=== PATIENT | male | born 1955 | race Caucasian/White ===

== ENCOUNTER 2025-03-13 10:04 | Inpatient (IN) ==
--- NOTE | 2025-03-13 10:23 | Emergency Department Note ---
Impression & Plan Kidney stone on left side ED Provider Note Provider: Christofer Lomax MD CHIEF COMPLAINT: Left leg pain HISTORY OF PRESENT ILLNESS: Patient is a 69-year-old gentleman history of kidney stones, hypertension, and type II diabetes presenting here today complaining onset this morning of left flank pain. Feels similar to kidney stones last kidney stone was when he was here 2 years ago. No falls reported. Maybe little bit of left flank tenderness. Reports some frequent urination this morning and burning when he pees but no blood in the urine. Denies fever. Some nausea and vomited before arriving. Did not take anything for pain today prior to arrival. PAST MEDICAL HISTORY: As noted above MEDICATIONS: Reviewed home medications SOCIAL HISTORY: Former smoker PHYSICAL EXAM: GENERAL: alert and oriented on stretcher appears mildly uncomfortable. Head: normocephalic and atraumatic EYES: No injection, discharge or icterus. NECK: Trachea midline. ENT: Mucous membranes pink and moist. LUNGS: Airway patent. No retractions or tachypnea HEART: Regular rate and rhythm. No chest wall tenderness ABDOMEN: Soft and non-tender, without guarding or rebound. However having some mild left flank tenderness. SKIN: Acyanotic, warm, dry, without rashes EXTREMITIES: Without swelling, tenderness or deformity NEUROLOGICAL: No focal deficits. No aphasia. No facial droop or slurred speech. Ambulatory. CONTINUOUS CARDIAC MONITORING: was ordered and showed a heart rate of 60s bpm in normal sinus rhythm Patient's laboratory studies and imaging reviewed. Differential includes Renal colic, UTI, appendicitis, diverticulitis, mesenteric ischemia, aortic pathology, infections, inflammatory bowel disease, PUD, biliary pathology, as well as other pathologies. IMPRESSION/MEDICAL DECISION MAKING: Patient history of kidney stones and states it feels similar. No trauma history. No fever history. No blood reported in the urine this morning others reported little urinary frequency and discomfort. Will send UA to exclude infection. Will complete a CT scan the abdomen pelvis to look for possible kidney stone or other occult intra-abdominal processes. Symptoms could possibly represent kidney stone, possible infection/UTI/pyelonephritis, diverticulitis, or less likely obstruction. Doubt this is cardiac in nature. Basic blood work obtained. Given IV fluids, Zofran, morphine, and Toradol for pain control. Blood work without anemia or leukocytosis. No skin electrolyte abnormality signs or renal dysfunction. No evidence of hepatitis or pancreatitis. CT scan of the abdomen pelvis per radiology shows a distal left ureteral stone 8 mm in size. A staghorn calculus in left lower kidney is noted. Received additional dose of morphine for pain which returned. Received IV fluid to hopefully obtain a urine sample to exclude occult infection. Patient with a history of stenting. Significant pain. UA not impressive for infection. Discussed with patient findings. Will likely need urological intervention given the size. Given his need for pain control in discussion with the patient wish to come in for pain control and urological evaluation. Patient states given his pain issues would like to come in for further care and evaluation. Hospitalist team was contacted. DIAGNOSIS: Left-sided kidney stone DISPOSITION: Hospitalist will evaluate Patient was agreeable with this plan. Past Med/Surg History Problem List (Updated 03/13/25 @ 13:24 by Christofer Lomax M.D.) Kidney stone on left side (Acute) Calculus of proximal left ureter Kidney stone (Acute) HTN (hypertension) Dyslipidemia DM type 2 (diabetes mellitus, type 2) Medical History DM type 2 (diabetes mellitus, type 2) Dyslipidemia HTN (hypertension) Kidney stone Mild intermittent asthma Surgical History History of shoulder surgery Social History Smoking Status: Former smoker Tobacco Type: Cigarettes Cigarettes Per Day: 1-2; Second Hand Exposure: No; Do You Dip or Chew Tobacco: No; Hx Alcohol Use: No Hx Substance Use: No Preferred Language: Belarusian Communication Ability: Effective Custom Clothier Required: No Beliefs That Will Affect Care: None Current Living Situation: Significant Other Feels Safe at Home: Yes Assistive Devices: Glasses and Hospital Bed Allergies Allergies Allergy/AdvReac Type Severity Reaction Status Date / Time Penicillins Allergy Unknown MOM IS Verified 04/09/23 12:25 ALLERGIC Home Meds Home Medications Medication Instructions Recorded Confirmed ascorbic acid (vitamin C) 500 mg 500 mg PO DAILY 04/09/23 03/13/25 tablet (Vitamin C) atenolol 25 mg tablet 12.5 mg PO DAILY 04/09/23 03/13/25 ferrous sulfate 325 mg (65 mg 325 mg PO DAILY 04/09/23 03/13/25 iron) tablet melatonin 10 mg tablet 10 mg PO HS 04/09/23 03/13/25 simvastatin 20 mg tablet 20 mg PO HS 04/09/23 03/13/25 spironolactone 25 mg tablet 25 mg PO BID 04/09/23 03/13/25 tamsulosin 0.4 mg capsule 0 mg PO HS 03/13/25 03/13/25 Results & Data (ED) Vital Signs Vital Signs - 24 hr 03/13/25 10:05 03/13/25 10:18 03/13/25 10:22 Temperature 36.3 C L Temperature Source Temporal Artery Scan Pulse Rate 59 L 65 63 Pulse Rhythm Regular Respiratory Rate 22 18 Blood Pressure 158/79 H Blood Pressure Mean 105 Pulse Oximetry 93 99 Oxygen Delivery Method Room Air Room Air Sepsis New/Unexplained Change in Mental Status No Sepsis Action Taken by Nursing No Action Required 03/13/25 11:36 03/13/25 12:24 03/13/25 12:30 Temperature Temperature Source Pulse Rate 58 L 65 59 L Pulse Rhythm Respiratory Rate 20 21 22 Blood Pressure 133/75 157/94 H 145/86 H Blood Pressure Mean 89 124 98 Pulse Oximetry 95 97 97 Oxygen Delivery Method Room Air Room Air Room Air Sepsis New/Unexplained Change in Mental Status Sepsis Action Taken by Nursing 03/13/25 13:00 03/13/25 13:30 Temperature Temperature Source Pulse Rate 68 61 Pulse Rhythm Respiratory Rate 18 19 Blood Pressure 144/89 H 129/80 Blood Pressure Mean 110 98 Pulse Oximetry 96 94 Oxygen Delivery Method Room Air Room Air Sepsis New/Unexplained Change in Mental Status Sepsis Action Taken by Nursing Laboratory Data 03/13/25 10:37 03/13/25 10:37 Lab Results 03/13/25 03/13/25 Range/Units 10:37 12:50 WBC 7.10 (4.8-10.8) K/ul RBC 4.49 L (4.70-6.10) M/uL Hgb 14.1 (14.0-18.0) g/dl Hct 41.4 L (42.0-52.0) % MCV 92.2 (80.0-100.0) fL MCH 31.4 (25.0-34.0) pg MCHC 34.1 (32.0-36.0) g/dL RDW Std Deviation 40.1 (36.4-46.3) fL RDW Coeff of Kush 11.9 (11.5-14.5) % Plt Count 176 (130-400) K/uL MPV 9.4 (9.4-12.4) fL Immature Gran % (Auto) 0.3 % Neut % (Auto) 74.5 % Lymph % (Auto) 16.1 % Thayer % (Auto) 6.1 % Eos % (Auto) 2.3 % Baso % (Auto) 0.7 % Neut # (Auto) 5.30 (1.40-6.50) K/uL Lymph # (Auto) 1.14 L (1.20-3.40) K/uL Thayer # (Auto) 0.43 (0.11-0.59) K/uL Eos # (Auto) 0.16 (0.00-0.50) K/uL Baso # (Auto) 0.05 (0.00-0.20) K/uL Immature Gran # (Auto) 0.02 (0.01-0.20) K/uL Sodium 136 (136-145) mmol/L Potassium 4.1 (3.5-5.1) mmol/L Chloride 105 (98-107) mmol/L Carbon Dioxide 23 (21-32) mmol/L Anion Gap 8 (3-11) BUN 14 (6-23) mg/dl Creatinine 0.82 (0.6-1.4) mg/dl Est Cr Clr Drug Dosing 104.0 ml/min eGFR 94.50 BUN/Creatinine Ratio 17.1 (10-20) Glucose 196 H (70-99(Fasting)) mg/dl Calcium 9.0 (8.6-10.3) mg/dl Total Bilirubin 1.7 H (0.2-1.0) mg/dl AST 27 (13-39) U/L ALT 34 (7-52) U/L Alkaline Phosphatase 54 (34-104) U/L Total Protein 6.8 (6.0-8.3) gm/dl Albumin 3.9 (3.4-5.0) gm/dl Globulin 2.9 (2.5-4.0) gm/dl Albumin/Globulin Ratio 1.3 (0.9-2) Lipase 13 (11-82) U/L Urine Color Yellow Urine Appearance Clear (Clear) Urine pH 5.0 (4.5-7.5) Ur Specific [place] > 1.045 H (1.000-1.030) Urine Protein Negative (Negative) Urine Glucose (UA) Negative (Negative) Urine Ketones Trace H (Negative) Urine Blood 3+ H (Negative) Urine Nitrite Negative (Negative) Urine Bilirubin Negative (Negative) Urine Urobilinogen Negative (Negative) Ur Leukocyte Esterase Negative (Negative) Urine WBC (Auto) 0-5 (0-5) /hpf Urine RBC (Auto) >20 H (0-2) /hpf U Hyaline Cast (Auto) 0-2 (0-2) /lpf U Epithel Cells (Auto) 0-2 (0-2) /hpf Urine Bacteria (Auto) None Seen (None Seen) Urine Comment Administered Medications Discontinued Medications Sodium Chloride (Nss) 500 mls @ 999 mls/hr IV .Q31M ONE Stop: 03/13/25 10:50 Last Infusion: 03/13/25 11:54 Dose: Infused Documented By: Admin: 03/13/25 10:30 Dose: 999 mls/hr Documented By: EDILK Ioversol (Optiray 320 100ml) 93 ml IV ONCE ONE Stop: 03/13/25 11:30 Last Admin: 03/13/25 11:29 Dose: 93 ml Documented By: EDK Ketorolac Tromethamine (Ketorolac Tromethamine 15 Mg/Ml Vial) 10 mg IV NOW ONE Stop: 03/13/25 10:21 Last Admin: 03/13/25 10:31 Dose: 10 mg Documented By: EDILK Morphine Sulfate (Morphine Sulfate 4 Mg/Ml 1 Ml Carp\Vial) 4 mg IV NOW STA Stop: 03/13/25 10:21 Last Admin: 03/13/25 10:31 Dose: 4 mg Documented By: TNK Morphine Sulfate (Morphine Sulfate 4 Mg/Ml 1 Ml Carp\Vial) 4 mg IV NOW STA Stop: 03/13/25 12:40 Last Admin: 03/13/25 12:46 Dose: 4 mg Documented By: ECS Ondansetron HCl (Ondansetron Inj 2 Mg/Ml 2 Ml Vial) 4 mg IV NOW STA Stop: 03/13/25 10:21 Last Admin: 03/13/25 10:31 Dose: 4 mg Documented By: TNK Imaging Data Radiologist's Impression: Abdomen/Pelvis CT 03/13/25 10:16 EXAM: CT abdomen pelvis with contrast EXAM REASON: Left flank pain. Questionable stone COMPARISON: 04/09/2023 TECHNIQUE: Multiple transaxial images of the abdomen and pelvis were obtained following the intravenous administration of contrast. The images were also reconstructed in coronal and sagittal planes. FINDINGS: The visualized portions of the lung bases are unremarkable. There is a large hiatal hernia. No focal abnormalities are noted within the liver or spleen. The adrenals and pancreas are within normal limits. The gallbladder is unremarkable. There is normal enhancement of the kidneys. There is moderate left-sided hydronephrosis and hydroureter. This is secondary to an 8 mm stone noted in the distal just proximal to the ureterovesical junction. There is a large staghorn calculus noted in the lower pole of the left kidney. The bowel loops are of normal caliber. The bladder is unremarkable. There is no free air, free fluid or inflammatory change. The appendix is not definite identified. No acute bony abnormalities are seen. IMPRESSION: 1. Moderate obstructive uropathy noted on the left secondary to an 8 mm stone in the distal left ureter. 2. Staghorn calculus noted in the lower pole of the left kidney. Electronically signed by Dez Torrez 03-13-2025 12:43 PM Discharge Plan Visit Data Chief Complaint: Kidney Stone Stated Complaint: KIDNEY STONE ED Provider: Christofer Lomax Discharge Problem: Kidney stone on left side Patient Disposition: Being Evaluated by Hospitalist Condition: Fair Forms Stand Alone Forms: [facility] Prescriptions Prescriptions: No Action atenolol 25 mg tablet 12.5 mg PO DAILY spironolactone 25 mg tablet 25 mg PO BID ascorbic acid (vitamin C) [Vitamin C] 500 mg Tablet 500 mg PO DAILY Patient Comments: 03/13- otc unable to verify simvastatin 20 mg tablet 20 mg PO HS ferrous sulfate 325 mg (65 mg iron) Tablet 325 mg PO DAILY Patient Comments: 03/13- otc/no fill history unable to verify melatonin 10 mg Tablet 10 mg PO HS Patient Comments: 03/13- otc unable to verify tamsulosin 0.4 mg capsule 0 mg PO HS Patient Comments: 03/13- no fill history unable to verify Referrals Referrals: Mehdi Crook MD [Outside Practitioners] -
[2025-03-13] MEDS: SODIUM CHLORIDE 0.9% 500 ML IV ONE (10:30)
[2025-03-13] MEDS: KETOROLAC TROMETHAMINE 15 MG/ML VIAL IV ONE (10:31)
[2025-03-13] MEDS: MoRPHine SULFATE 4 MG/ML 1 ML CARP\\VIAL IV STA ×2 (10:31→12:46)
[2025-03-13] MEDS: ONDANSETRON INJ 2 MG/ML 2 ML VIAL IV STA (10:31)
[2025-03-13 10:56] LABS: Hematocrit (blood only) 41.4 % (42.0-52.0); Hemoglobin 14.1 g/dl (14.0-18.0); Immature Granulocytes # (auto) 0.02 K/uL (0.01-0.20); Immature Granulocytes % (auto) 0.3 %; Mean Corpuscular Hemoglobin 31.4 pg (25.0-34.0); Mean Corpuscular Volume 92.2 fL (80.0-100.0); Platelet Count 176 K/uL (130-400); RDW Standard Deviation 40.1 fL (36.4-46.3); Red Blood Count 4.49 M/uL (4.70-6.10); White Blood Count 7.10 K/ul (4.8-10.8)
[2025-03-13 11:14] LABS: Alanine Aminotransferase 34.0 U/L (7-52); Albumin Globulin Ratio 1.3 (0.9-2); Alkaline Phosphatase 54.0 U/L (34-104); Anion Gap 8.0 (3-11); Bilirubin,Total 1.7 mg/dl (0.2-1.0); Blood Urea Nitrogen 14.0 mg/dl (6-23); Calcium 9.0 mg/dl (8.6-10.3); Carbon Dioxide 23.0 mmol/L (21-32); Chloride 105.0 mmol/L (98-107); Creatinine Clr Calc Pharmacy 104.0 ml/min; Globulin 2.9 gm/dl (2.5-4.0); Glucose 196.0 mg/dl (70-99(Fasting)); Lipase 13.0 U/L (11-82); Potassium 4.1 mmol/L (3.5-5.1); Sodium 136.0 mmol/L (136-145); Total Protein 6.8 gm/dl (6.0-8.3)
[2025-03-13] MEDS: OPTIRAY 320 100ml IV ONE (11:29)
--- NOTE | 2025-03-13 12:43 | CT Scan Report ---
EXAM: CT abdomen pelvis with contrast EXAM REASON: Left flank pain. Questionable stone COMPARISON: 04/09/2023 TECHNIQUE: Multiple transaxial images of the abdomen and pelvis were obtained following the intravenous administration of contrast. The images were also reconstructed in coronal and sagittal planes. FINDINGS: The visualized portions of the lung bases are unremarkable. There is a large hiatal hernia. No focal abnormalities are noted within the liver or spleen. The adrenals and pancreas are within normal limits. The gallbladder is unremarkable. There is normal enhancement of the kidneys. There is moderate left-sided hydronephrosis and hydroureter. This is secondary to an 8 mm stone noted in the distal just proximal to the ureterovesical junction. There is a large staghorn calculus noted in the lower pole of the left kidney. The bowel loops are of normal caliber. The bladder is unremarkable. There is no free air, free fluid or inflammatory change. The appendix is not definite identified. No acute bony abnormalities are seen. IMPRESSION: 1. Moderate obstructive uropathy noted on the left secondary to an 8 mm stone in the distal left ureter. 2. Staghorn calculus noted in the lower pole of the left kidney. Electronically signed by Dez Torrez 03-13-2025 12:43 PM
[2025-03-13 13:17] LABS: Appearance Urine Clear (Clear); Bacteria Urine Automated None Seen (None Seen); Cast Urine Automated 0-2 /lpf (0-2); Epithelial Cell Urine Auto 0-2 /hpf (0-2); Glucose Urine UA Negative (Negative); RBC Urine Automated >20 /hpf (0-2); WBC Urine Automated 0-5 /hpf (0-5)
[2025-03-13] MEDS ORDERED: KETOROLAC TROMETHAMINE 15 MG/ML VIAL IM PRN (15:35)
[2025-03-13] MEDS ORDERED: ALUMINUM/MAGNESIUM SUSP 30 ML UDC PO PRN (15:35)
[2025-03-13] MEDS ORDERED: MAGNESIUM HYDROXIDE SUSP 30 ML UDC PO PRN (15:35)
[2025-03-13] MEDS ORDERED: POLYETHYLENE (MIRALAX) 17 GM PACK PO PRN (15:35)
[2025-03-13] MEDS ORDERED: ONDANSETRON INJ 2 MG/ML 2 ML VIAL IV PRN (15:35)
--- NOTE | 2025-03-13 15:53 | History & Physical Report ---
Date of Service March 13, 2025 Assessment & Plan (1) Kidney stone on left side: Plan: Patient is a 69 year old M with a past medical history of HTN, DM Type II, dyslipidemia, kidney stone s/p stents in the past and removed in 2022 presenting with left flank pain. Symptoms began this morning with left flank pain, described as stabbing, constant and moving around on left side. Similar symptoms as experienced in the past with previous kidney stones. Emesis x [address] to [address] hospital, possibly pain related. Kidney stone on left side: * Admit to Med/Surg for additional management * UA no signs of UTI * CT Abdomen/Pelvis showing moderate obstructive uropathy noted on the left secondary to an 8 mm stone in the distal left ureter; Staghorn calculus noted in the lower pole of the left kidney. * Holding home calcium supplement * Urology consult ordered * NPO post midnight for possible stent placement with Urology; IV fluids overnight * Pain management with acetaminophen, ketorolac, morphine as needed #Hypertension * Controlled with dual agents; Goal BP 130/80 * Continue home atenolol and spironolactone #Dyslipidemia * Continue home statin DVT Ppx: SCDs Code status: Full PCP: Dr. Herson Casanova Dispo: Admit for further management Patient seen in collaboration with Dr. Clemons. Please see addendum.I spent a total of 60 minutes coordinating, documenting and providing care for this patient excluding time spent in the performance of separately billed services or time spent by another provider/QHP. (2) HTN (hypertension): (3) Dyslipidemia: Admission and Anticipated Discharge Date Admission Date: March 13, 2025 History of Present Illness Primary Care Provider: Herson Casanova PA-C Patient is a 69 year old M with a past medical history of HTN, DM Type II, dyslipidemia, kidney stone s/p stents in the past and removed in 2022 presenting with left flank pain. Symptoms began this morning with left flank pain, described as stabbing, constant and moving around on left side. Similar symptoms as experienced in the past with previous kidney stones. Emesis x [address] to the hospital, possibly pain related. Denies fever, chills, weight loss, weakness, headache, cognitive changes, vision/hearing changes, chest pain, SOB, swelling, difficulty breathing, urinary concerns, N/D, joint swelling/pain, ambulation difficulty, skin rashes, lesions, bleeding, bruising. In the emergency department, patient was hemodynamically stable with stable labs. No signs of sepsis. Urine neg for UTI. CT Abdomen/Pelvis showing moderate obstructive uropathy noted on the left secondary to an 8 mm stone in the distal left ureter; Staghorn calculus noted in the lower pole of the left kidney. Treatment: IV fluid, zofran, morphine and toradol given in the ED. History obtained primarily from the patient and via hospitalization record. The patient's family was at the bedside and assisted with home medications. Allergies Allergy/AdvReac Type Severity Reaction Status Date / Time Penicillins Allergy Unknown MOM IS Verified 04/09/23 12:25 ALLERGIC Home Medications Medication Instructions Recorded Confirmed Type ascorbic acid (vitamin C) 500 mg 500 mg PO DAILY 04/09/23 03/13/25 History tablet (Vitamin C) atenolol 25 mg tablet 12.5 mg PO DAILY 04/09/23 03/13/25 History ferrous sulfate 325 mg (65 mg 325 mg PO DAILY 04/09/23 03/13/25 History iron) tablet melatonin 10 mg tablet 10 mg PO HS 04/09/23 03/13/25 History simvastatin 20 mg tablet 20 mg PO HS 04/09/23 03/13/25 History spironolactone 25 mg tablet 25 mg PO BID 04/09/23 03/13/25 History tamsulosin 0.4 mg capsule 0 mg PO HS 03/13/25 03/13/25 History Past Med/Surg History Problem List Kidney stone on left side (Acute) Calculus of proximal left ureter Kidney stone (Acute) HTN (hypertension) Dyslipidemia DM type 2 (diabetes mellitus, type 2) Medical History Mild intermittent asthma Surgical History History of shoulder surgery Social History Smoking Status: Former smoker Tobacco Type: Cigarettes Cigarettes Per Day: 1-2; Smoking End Date: 14 years ago; Second Hand Exposure: No; Do You Dip or Chew Tobacco: No; Tobacco Cessation Education Requested by Patient: No Hx Alcohol Use: Yes Alcohol type: beer Alcohol Intake Frequency: 4 or More x per/Week Hx Substance Use: No Preferred Language: Brazilian Communication Ability: Effective Esthetician/Owner Required: No Beliefs That Will Affect Care: None Current Living Situation: Significant Other Other Information That Helps Us Care for You: No Feels Safe at Home: Yes Safety Concerns: Feels Safe At This Time Assistive Devices: Glasses and Hospital Bed Review of Systems Review of Systems: All systems reviewed & are unremarkable except as noted in HPI & below Physical Exam Physical Exam: VITALS: Reviewed. WEIGHT/BMI reviewed. GEN: Obese, well-developed, NAD. PSYCH: Good Judgment. AOx4. Normal memory, mood, and affect. HEENT -Head: NC/AT; -Eyes: PERRL, EOMI. No discharge or redn ess; -Ears: External ears are normal. -Nose: Normal nares. -Mouth and throat: MMM. Normal gums, muc dmitry, palate,. Good dentition. NECK: Supple, with no masses. CV: RRR, no m/r/g. LUNGS: CTAB, no w/r/c. ABD: Soft, obese, active BS x 4, no masses or organomegaly. : N/A SKIN: Warm, well perfused. No skin rashes or abnormal lesions. MSK: No deformities, Normal gait. EXT: No clubbing, cyanosis, or edema. NEURO: CN II-XII grossly intact. No focal deficits. Results & Data Results & Data Vital Signs (Past 12 Hours) Vital Signs Temp Pulse Pulse Resp BP BP Pulse Ox 03/13/25 15:36 36.3 C L 63 16 127/72 98 03/13/25 15:20 76 20 137/79 98 03/13/25 14:00 113/66 03/13/25 14:00 69 20 94 03/13/25 13:30 61 19 129/80 94 03/13/25 13:00 68 18 144/89 H 96 03/13/25 12:30 59 L 22 145/86 H 97 03/13/25 12:24 65 21 157/94 H 97 03/13/25 11:36 58 L 20 133/75 95 03/13/25 10:22 63 03/13/25 10:18 65 18 99 03/13/25 10:05 36.3 C L 59 L 22 158/79 H 93 O2 Del Method 03/13/25 15:36 Room Air 03/13/25 15:20 Room Air 03/13/25 14:00 03/13/25 14:00 03/13/25 13:30 Room Air 03/13/25 13:00 Room Air 03/13/25 12:30 Room Air 03/13/25 12:24 Room Air 03/13/25 11:36 Room Air 03/13/25 10:22 03/13/25 10:18 Room Air 03/13/25 10:05 Room Air Laboratory Results Short CBC 03/13/25 Range/Units 10:37 WBC 7.10 (4.8-10.8) K/ul Hgb 14.1 (14.0-18.0) g/dl Hct 41.4 L (42.0-52.0) % Plt Count 176 (130-400) K/uL BMP 03/13/25 10:37 Sodium 136 Potassium 4.1 Chloride 105 Carbon Dioxide 23 BUN 14 Creatinine 0.82 Glucose 196 H Calcium 9.0 Liver Function 03/13/25 Range/Units 10:37 Total Bilirubin 1.7 H (0.2-1.0) mg/dl AST 27 (13-39) U/L ALT 34 (7-52) U/L Alkaline Phosphatase 54 (34-104) U/L Albumin 3.9 (3.4-5.0) gm/dl Urine 03/13/25 Range/Units 12:50 Urine Color Yellow Urine Appearance Clear (Clear) Urine pH 5.0 (4.5-7.5) Ur Specific [place] > 1.045 H (1.000-1.030) Urine Protein Negative (Negative) Urine Glucose (UA) Negative (Negative) Diagnostic Findings Abdomen/Pelvis CT 03/13/25 10:16 EXAM: CT abdomen pelvis with contrast EXAM REASON: Left flank pain. Questionable stone COMPARISON: 04/09/2023 TECHNIQUE: Multiple transaxial images of the abdomen and pelvis were obtained following the intravenous administration of contrast. The images were also reconstructed in coronal and sagittal planes. FINDINGS: The visualized portions of the lung bases are unremarkable. There is a large hiatal hernia. No focal abnormalities are noted within the liver or spleen. The adrenals and pancreas are within normal limits. The gallbladder is unremarkable. There is normal enhancement of the kidneys. There is moderate left-sided hydronephrosis and hydroureter. This is secondary to an 8 mm stone noted in the distal just proximal to the ureterovesical junction. There is a large staghorn calculus noted in the lower pole of the left kidney. The bowel loops are of normal caliber. The bladder is unremarkable. There is no free air, free fluid or inflammatory change. The appendix is not definite identified. No acute bony abnormalities are seen. IMPRESSION: 1. Moderate obstructive uropathy noted on the left secondary to an 8 mm stone in the distal left ureter. 2. Staghorn calculus noted in the lower pole of the left kidney. Electronically signed by Dez Torrez 03-13-2025 12:43 PM Code Status & VTE Plan VTE Prophylaxis Plan VTE Prophylaxis will be ordered: Yes Supervising Physician Co-Signing Physician Notes Attending Addendum: Case reviewed with the advanced practitioner. I have personally performed a history and physical examination on the patient. I have reviewed the advanced practitioner's documentation on the date of service referenced in note, and I agree with, and take responsibility for the plan of care. please refer to her notes for full details patient seen and examined, records reviewed by myself as well on exam, patient seen resting in bed, comfortable pain well controlled no chest pain, dyspnea, palpitations, dizziness no fever/chills no other symptoms VS noted and reviewed oriented x3, not in distress, speaks in sentences with no effort nor accessory muscle use normal rate, regular rhythm, no murmurs clear breath sounds bilaterally non distended, soft, nontender, no CVA tenderness no bipedal edema, erythema, warmth no neuro deficits all labs, imaging noted and reviewed ASSESSMENT AND PLAN> LEFT URETERAL STONE WITH MODERATE HYDRONEPHROSIS STAGHORN CALCULUS, LEFT KIDNEY history of kidney stones, multiple crea at baseline UA no signs of UTI IV fluids, Flomax, Urology consult, NPO post midnight in the evening around 6pm, RN notified patient may have passed a stone stone sent for analysis KUB in AM other diagnoses and plan of care as per advanced practitioner's notes I spent a total of 40 minutes coordinating, documenting, and providing care for this patient, excluding time spent in the performance of separately billed services or time spent by another provider/QHP. Patrick Clemons MD
[2025-03-13] MEDS: KETOROLAC TROMETHAMINE 15 MG/ML VIAL IV PRN (17:27)
[2025-03-13] MEDS: SPIRONOLACTONE 25 MG TAB PO SCH (20:05)
[2025-03-13] MEDS: SIMVASTATIN 20 MG TAB PO SCH (20:05)
[2025-03-13] MEDS: ACETAMINOPHEN 325 MG TAB PO PRN (22:06)
[2025-03-13 23:09] VITALS: RESP 18
[2025-03-14] MEDS: MoRPHine SULFATE 2 MG/ML CARP IV PRN (05:07)
[2025-03-14 07:31] VITALS: BP 125/76; PULSE 60; TEMP 97.9; O2SAT 98
[2025-03-14 08:01] LABS: Hematocrit (blood only) 40.5 % (42.0-52.0); Hemoglobin 13.2 g/dl (14.0-18.0); Mean Corpuscular Hemoglobin 30.9 pg (25.0-34.0); Mean Corpuscular Volume 94.8 fL (80.0-100.0); Platelet Count 185 K/uL (130-400); RDW Standard Deviation 42.4 fL (36.4-46.3); Red Blood Count 4.27 M/uL (4.70-6.10); White Blood Count 5.89 K/ul (4.8-10.8)
[2025-03-14] MEDS: ATENOLOL 25 MG TABLET PO SCH (08:06)
[2025-03-14] MEDS: FERROUS SULFATE 325 MG TAB PO SCH (08:06)
[2025-03-14 08:17] LABS: Anion Gap 5.0 (3-11); Blood Urea Nitrogen 21.0 mg/dl (6-23); Calcium 9.0 mg/dl (8.6-10.3); Carbon Dioxide 29.0 mmol/L (21-32); Chloride 102.0 mmol/L (98-107); Creatinine Clr Calc Pharmacy 98.5 ml/min; Glucose 157.0 mg/dl (70-99(Fasting)); Magnesium 2.2 mg/dl (1.7-2.4); Potassium 3.8 mmol/L (3.5-5.1); Sodium 136.0 mmol/L (136-145)
--- NOTE | 2025-03-14 09:39 | XRay Report ---
EXAM: Radiograph of the Abdomen 1 View INDICATION: Stone TECHNIQUE: Frontal supine view of the abdomen/pelvis. COMPARISON: 03/13/2025 FINDINGS: Limitations: None. Gastrointestinal tract: Moderate amounts of stool scattered in the right colon. No distention. Organs: Stable 5 mm distal left ureteral stone. Stable 1.6 x 2.5 cm lower pole left kidney stone. Bones/joints: No fracture, erosion or dislocation. Soft tissues: No abnormality noted. No radiopaque foreign body noted. IMPRESSION: Stable 5 mm distal left ureteral stone and left lower pole kidney stone. ACT 112: N/A Electronically signed by Laverne Blackwell 03-14-2025 09:38 AM
--- NOTE | 2025-03-14 12:03 | Urology Consultation ---
Date of Consultation March 14, 2025 History of Present Illness Attending Physician: Olman Jin MD Allergies Allergy/AdvReac Type Severity Reaction Status Date / Time Penicillins Allergy Unknown MOM IS Verified 04/09/23 12:25 ALLERGIC Home Medications Medication Instructions Recorded Confirmed Type atenolol 25 mg tablet 12.5 mg PO DAILY 04/09/23 03/13/25 History melatonin 10 mg tablet 10 mg PO HS 04/09/23 03/13/25 History simvastatin 20 mg tablet 20 mg PO HS 04/09/23 03/13/25 History spironolactone 25 mg tablet 25 mg PO BID 04/09/23 03/13/25 History tamsulosin 0.4 mg capsule 0 mg PO HS 03/13/25 03/13/25 History Patient History Medical History Mild intermittent asthma Surgical History History of shoulder surgery Social History Smoking Status: Former smoker Tobacco Type: Cigarettes Cigarettes Per Day: 1-2; Second Hand Exposure: No; Do You Dip or Chew Tobacco: No; Hx Alcohol Use: Yes Alcohol type: beer Alcohol Intake Frequency: 4 or More x per/Week Hx Substance Use: No Preferred Language: [place] Communication Ability: Effective Insole Rounder Required: No Beliefs That Will Affect Care: None Current Living Situation: Significant Other Feels Safe at Home: Yes Assistive Devices: Glasses and Hospital Bed Results & Data Vital Signs (Past 12 Hours) Vital Signs Temp Pulse Resp BP Pulse Ox O2 Del Method 03/14/25 11:57 36.6 C 60 18 125/76 98 03/14/25 07:30 36.6 C 60 18 125/76 98 Room Air PG Care Time/CCT Total # of Minutes Spent Total Time Spent with Patient: Total time spent is greater than 50% in coordination of care (as documented) at patient's floor/unit and/or counseling patient: Coding
--- NOTE | 2025-03-14 13:13 | Communication Note ---
Date of Service: March 14, 2025 Patient passed stone yesterday and was discharged. Patient was discharged prior to being seen. Will likely need set up for follow-up. Already established patient and had procedure with Dr. Herrera in the past.
--- NOTE | 2025-03-14 18:09 | Discharge Summary ---
Discharge Summary Date of Service March 14, 2025 Principal Dx & Hospital Course #1 = Principal Diagnosis (1) Kidney stone on left side: Patient is a 69 year old M with a past medical history of HTN, DM Type II, dyslipidemia, kidney stone s/p stents in the past and removed in 2022 presenting with left flank pain. Symptoms began this morning with left flank pain, described as stabbing, constant and moving around on left side. Similar symptoms as experienced in the past with previous kidney stones. Emesis x [address] to [address] hospital, possibly pain related. Kidney stone on left side: * Admit to Med/Surg for additional management * UA no signs of UTI * CT Abdomen/Pelvis showing moderate obstructive uropathy noted on the left secondary to an 8 mm stone in the distal left ureter; Staghorn calculus noted in the lower pole of the left kidney. * Holding home calcium supplement * Urology consult ordered * NPO post midnight for possible stent placement with Urology; IV fluids overnight * Pain management with acetaminophen, ketorolac, morphine as needed #Hypertension * Controlled with dual agents; Goal BP 130/80 * Continue home atenolol and spironolactone #Dyslipidemia * Continue home statin DVT Ppx: SCDs Code status: Full PCP: Dr. Herson Casanova Dispo: Admit for further management Patient seen in collaboration with Dr. Clemons. Please see addendum.I spent a total of 60 minutes coordinating, documenting and providing care for this patient excluding time spent in the performance of separately billed services or time spent by another provider/QHP. (2) HTN (hypertension): (3) Dyslipidemia: Notes For Next Care Provider Patient is a 69 year old M with a past medical history of HTN, DM Type II, dyslipidemia, kidney stone s/p stents in the past and removed in 2022 presenting with left flank pain. On medicine, stone passed and sent for analysis. Patient pain improved immediately, now feels back to normal. On 03/14/2025 patient medically stable for discharge. To do: [ ] f/u with urology [ ] f/u stone analysis Medication Changes From Visit -none Admission HPI Per Admitting Provider Patient is a 69 year old M with a past medical history of HTN, DM Type II, dyslipidemia, kidney stone s/p stents in the past and removed in 2022 presenting with left flank pain. Symptoms began this morning with left flank pain, described as stabbing, constant and moving around on left side. Similar symptoms as experienced in the past with previous kidney stones. Emesis x [address] to the hospital, possibly pain related. Denies fever, chills, weight loss, weakness, headache, cognitive changes, vision/hearing changes, chest pain, SOB, swelling, difficulty breathing, urinary concerns, N/D, joint swelling/pain, ambulation difficulty, skin rashes, lesions, bleeding, bruising. In the emergency department, patient was hemodynamically stable with stable labs. No signs of sepsis. Urine neg for UTI. CT Abdomen/Pelvis showing moderate obstructive uropathy noted on the left secondary to an 8 mm stone in the distal left ureter; Staghorn calculus noted in the lower pole of the left kidney. Treatment: IV fluid, zofran, morphine and toradol given in the ED. History obtained primarily from the patient and via hospitalization record. The patient's family was at the bedside and assisted with home medications. Discharge Exam Gen: A&O 3 NAD HEENT: NCAT, EOMI, not icteric. External ears normal. No rhinorrhea. Moist mucous membranes. Neck: Supple, full range of motion, no observable masses, No meningeal sign. Lungs: No Respiratory distress. CV: RRR, no edema. Abdomen: Soft, nondistended, No rebound tenderness. MSK: No joint swelling, no redness. Skin: No rashes, petechiae, lesions. Normal color per patient. Neuro: Normal Gait, Grossly intact. Psych: Appropriate for situation. Updated Medication List Medication Instructions Recorded Confirmed Type atenolol 25 mg tablet 12.5 mg PO DAILY 04/09/23 03/13/25 History melatonin 10 mg tablet 10 mg PO HS 04/09/23 03/13/25 History simvastatin 20 mg tablet 20 mg PO HS 04/09/23 03/13/25 History spironolactone 25 mg tablet 25 mg PO BID 04/09/23 03/13/25 History tamsulosin 0.4 mg capsule 0 mg PO HS 03/13/25 03/13/25 History Hospital Stay Data Consultations 03/13/25 13:45 ED Decision to Admit Stat 03/13/25 15:35 Consult Urology Routine Diagnostic Imagining Performed 03/13/25 10:16 CT abd pelvis IV con only Stat Pending Results Patient Have Any Pending Studies at Discharge: No Discharge Instructions Given to Patient (Per Discharging Provider) Diagnosis: struvite kidney stone Follow Ups: urology, PCP Incidentals: left sided kidney stone 1. Please stay hydrated! 2. Follow up with urology and PCP. Total Time Total Time Spent Total Time Spent (In Minutes): I spent a total of 35 minutes in direct patient care, including [id number] time with the patient and/or family, reviewing medical records, ordering and reviewing diagnostic tests, and coordinating care with other healthcare providers. This time includes: history taking, physical examination, medical decision making, counseling, ECG interpretation, imaging interpretation, lab interpretation, orders, and education, excluding time spent in the performance of separately billed services.
== END 2025-03-14 12:27 | disposition home or self-care (01) | DRG 694 ==
LOC: ED 10:04 → 3E 14:23 → SUATTDRO 14:23 → 3E 15:20